=== PATIENT | male | born 1965 | race Caucasian/White ===

== ENCOUNTER → 2024-04-17 10:35 | Outpatient (BNVA) | payer BC, SELFPAY | PROVIDERS: Visit Provider Family Medicine Adult Medicine | DX: I10 Essential (primary) hypertension (principal); E78.5 Hyperlipidemia, unspecified; E11.9 Type 2 diabetes mellitus without complications | CPT/HCPCS: 80053; 80061; 83036; 84443; 85025 ==

== ENCOUNTER 2024-04-30 06:44 | Outpatient (CLI) | payer BC, SELFPAY ==
--- NOTE | 2024-04-30 07:00 | CT_ITS ---
WS: [id number] CT HEAD NONCONTRAST HISTORY: memory loss TECHNIQUE: Contiguous axial imaging performed through the brain in 3.0 mm imaging. Bone and soft tiss ue windows. Sagittal and coronal reformats reviewed. All CT scans at [facility] use at least one of these dose optimization techniques: automated exposure control; mA and/or kV adjustment per pa tient size (includes targeted exams where dose is matched to clinical indication); or iterative recon struction. DLP: 1183.31 mGy.cm COMPARISON: None available. No acute intracranial hemorrhage, midline shift or mass effect. Moderate atrophy and moderate to severe small vessel ischemic disease noted bilaterally. Remote poste rior RIGHT parietal infarct. No acute infarcts. Additional lacunar infarct RIGHT basal ganglia. Ventricles: Normal size with no hydrocephalus. No inferior displacement of the cerebellar tonsils. Paranasal sinuses: Mild mucoperiosteal thickening. No air-fluid levels. Mastoid air cells: Well pneumatized. Calvarium and scalp: No calvarial fracture or destructive lesions. There are multiple scalp lesions. Posterior RIGHT parietal lesion is the largest measuring 1.6 cm in maximum diameter. There are additi onal scalp nodules majority of which are calcified scattered over the RIGHT cranium. CT/CT head wo con* [id number] IMPRESSION: 1. No acute intracranial hemorrhage or edema. 2. 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 The extent of disease is more advan libra than expected for a patient of this age. 3. Multiple scalp lesions majority of which are calcified. The largest is nonc alcified at 1.6 cm over the posterior RIGHT parietal region. This is probably a benign sebaceous cyst.
== END 2024-04-30 06:45 | disposition home or self-care (01) ==
LOC: RAD 06:44
PROVIDERS: PCP Family Medicine Adult Medicine; Visit Provider Family Medicine Adult Medicine
DX: R41.89 Other symptoms and signs involving cognitive functions and awareness (principal); R46.89 Other symptoms and signs involving appearance and behavior; I67.82 Cerebral ischemia; I63.9 Cerebral infarction, unspecified; D23.4 Other benign neoplasm of skin of scalp and neck
CPT/HCPCS: 70450

== ENCOUNTER → 2025-03-05 15:31 | Outpatient (BNVA) | payer BC, SELFPAY | PROVIDERS: PCP Family Medicine; Visit Provider Family Medicine | DX: I10 Essential (primary) hypertension (principal); E78.5 Hyperlipidemia, unspecified; R73.03 Prediabetes; I69.319 Unspecified symptoms and signs involving cognitive functions following cerebral infarction; R41.89 Other symptoms and signs involving cognitive functions and awareness; F01.518 Vascular dementia, unspecified severity, with other behavioral disturbance | CPT/HCPCS: 80053; 80061; 83036; 84443; 85025 ==

== ENCOUNTER 2025-05-03 16:40 | Outpatient (CLI) | payer BC, SELFPAY ==
--- NOTE | 2025-05-03 16:46 | XRR_ITS ---
PROCEDURE INFORMATION: Exam: XR Lumbosacral Spine Exam date and time: 05/03/2025 4:52 PM Age: 60 years old Clinical indication: Low back pain; Additional info: Bilateral hip and low back pain TECHNIQUE: Imaging protocol: Radiologic exam of the lumbosacral spine. Views: 2 or 3 views. COMPARISON: CR XR hip BI 2V wo/w pel [id number] 05/03/2025 4:52 PM FINDINGS: Bones/joints: No definite acute fractures are seen. There is slight anterior vertebral body wedging at L2 with no distinct fracture lucency visible. Lumbar spine alignment is unremarkable.The lumbar spine demonstrates moderate discogenic and apophyseal joint degenerative changes at multiple levels. Soft tissues: Unremarkable. XR/XR lumbar spine 2-3V* [id number] IMPRESSION: 1. No acute lumbar spine pathology identified. 2. Moderate severity diffuse lumbar spondylosis changes.
--- NOTE | 2025-05-03 16:46 | XRR_ITS ---
PROCEDURE INFORMATION: Exam: XR Bilateral Hips Exam date and time: 05/03/2025 4:52 PM Age: 60 years old Clinical indication: Hip pain; Bilateral; Additional info: Low back pain and hip pain bilaterally TECHNIQUE: Imaging protocol: Radiologic exam of the bilateral hips. Views: 2 views of hips with pelvis when performed. COMPARISON: CR XR lumbar spine 2-3V* [id number] 05/03/2025 4:52 PM FINDINGS: Bones/joints: Unremarkable. No acute fracture. Soft tissues: Unremarkable. XR/XR hip BI 2V wo/w pel [id number] IMPRESSION: No acute findings.
== END 2025-05-03 16:41 | disposition home or self-care (01) ==
PROVIDERS: PCP Family Medicine; Visit Provider Family Medicine
DX: M54.50 Low back pain, unspecified (principal); M25.551 Pain in right hip; M25.552 Pain in left hip
CPT/HCPCS: 72100; 73521